=== PATIENT | male | born 1965 | race Asian ===

== ENCOUNTER 2019-03-10 11:40 | Emergency (ER) | payer OTHER ==
[~2019-03-10] VITALS: Ht 162.6 cm; Wt 69.2 kg
[2019-03-10 12:43] LABS: BASOPHILS # (AUTO) 0.1 X10'3 (0-0.2); BASOPHILS % (AUTO) 0.4 % (0-1); EOSINOPHILS # (AUTO) 0.1 X10'3 (0-0.9); EOSINOPHILS % (AUTO) 0.6 % (0-6); HEMATOCRIT 42.7 % (42.0-52.0); HEMOGLOBIN 14.7 g/dl (14.0-17.9); LYMPHOCYTES # (AUTO) 2.7 X10'3 (1.1-4.8); LYMPHOCYTES % (AUTO) 21.8 % (21-51); MEAN CORPUSCULAR HGB CONC 34.4 g/dL (33.0-36.5); MEAN CORPUSCULAR VOLUME 92.9 FL (78-98); MEAN PLATELET VOLUME 7.6 FL (7.4-10.4); MONOCYTES # (AUTO) 1.1 X10'3 (0-0.9); MONOCYTES % (AUTO) 9.3 % (2-12); NEUTROPHILS # (AUTO) 8.3 X10'3 (1.8-7.7); NEUTROPHILS % (AUTO) 67.9 % (42-75); PLATELET COUNT 224 X10'3 (140-440); RED CELL DISTRIBUTION WIDTH 13.4 % (11.5-14.5); WHITE BLOOD COUNT 12.2 X10'3 (4.5-11.0)
[2019-03-10 12:44] LABS: CLARITY,URINE CLEAR (Clear); COLOR,URINE YELLOW (Yellow); GLUCOSE, URINE 250 mg/dl (Neg); KETONES,URINE NEGATIVE (Neg); LEUKOCYTE ESTERASE ,URINE NEGATIVE (Neg); NITRITES, URINE NEGATIVE (Neg); OCCULT BLOOD,URINE LARGE (Neg); PROTEIN,URINE NEGATIVE (Neg); UROBILINOGEN,URINE 0.2 E.U/dL (0.2-1.0)
[2019-03-10 12:48] LABS: UA COLLECTION TYPE CLN CATCH MIDSTREAM
[2019-03-10 12:49] LABS: BACTERIA,URINE NONE SEEN /HPF (Neg); MUCUS STRANDS FEW /LPF (Neg); RBC,URINE 0-2 /HPF (0-2); SQUAMOUS EPITHELIAL CELL,UR FEW /LPF (FEW); WBC,URINE 0-4 /HPF (0-4)
[2019-03-10 12:57] LABS: ALANINE AMINOTRANSFERASE 27 U/L (12-78); ALBUMIN 3.4 G/DL (3.4-5.0); ALBUMIN/GLOBULIN RATIO 0.8 (1.1-1.5); ALKALINE PHOSPHATASE 94 IU/L (46-116); ANION GAP 8 (8-16); ASPARTATE AMINO TRANSFERASE 15 U/L (10-37); BILIRUBIN,TOTAL 0.5 MG/DL (0.1-1.0); BLOOD UREA NITROGEN 16 MG/DL (7-18); BUN/CREATININE RATIO 12.3 (5.4-32.0); CALCIUM 8.7 MG/DL (8.5-10.1); CHLORIDE 106 MMOL/L (99-107); GLUCOSE 116 MG/DL (70-104); POTASSIUM 3.2 MMOL/L (3.5-5.1); SODIUM 142 MMOL/L (135-145); TOTAL CARBON DIOXIDE 28.5 MMOL/L (24-32); TOTAL PROTEIN 7.6 G/DL (6.4-8.2); eGFR 57 ML/MIN
[2019-03-10] MEDS ORDERED: ondansetron/PF 4mg/2ml inj IV ONE (13:25)
[2019-03-10] MEDS ORDERED: normal saline 1000ML IV soln IVB ONE (13:25)
[2019-03-10] MEDS ORDERED: morphine 4 MG/ML inj SYRINge IV ONE (13:25)
[2019-03-10] MEDS ORDERED: iohexol 300mg/ml 100ml inj. ONE (14:47)
[2019-03-10] MEDS ORDERED: morphine 2 MG/ML inj. syringe IV PRN (15:15)
[2019-03-10] MEDS ORDERED: ONDA8TAB13 PO (15:38)
[2019-03-10] MEDS ORDERED: HYDR-3965 PO (15:38)
[2019-03-10] MEDS ORDERED: FLO0.4C PO (15:38)
[2019-03-10] MEDS ORDERED: ketorolac tromethamine 15mg/ml inj. IV ONE (15:40)
[2019-03-10] MEDS ORDERED: tamsulosin 0.4mg capsule PO ONE (15:40)
[2019-03-10 16:48] VITALS: BP 124/85
== END 2019-03-10 16:51 | disposition home or self-care (01) ==
LOC: ER 11:41
DX: N13.2 Hydronephrosis with renal and ureteral calculous obstruction (principal); Z79.899 Other long term (current) drug therapy
CPT/HCPCS: 36415; 74177; 80053; 81001; 85025; 85610; 96374; 96375; 96376; 99284; J1885; J2270; J2405; J7030; Q9967

== ENCOUNTER 2021-05-16 12:06 | Emergency (ER) | payer MEDICAID ==
[~2021-05-16] VITALS: Ht 162.6 cm; Wt 68.2 kg
[~2021-05-16 12:06] MED LIST: ONDA8TAB13 PO
[2021-05-16 12:12] VITALS: BP 132/90
[2021-05-16] MEDS ORDERED: ketorolac tromethamine 15mg/ml inj. IM ONE (13:10)
[2021-05-16] MEDS ORDERED: NAPR-56 PO (13:13)
[2021-05-16] MEDS ORDERED: METH-798 PO (13:13)
== END 2021-05-16 13:31 | disposition home or self-care (01) ==
LOC: ER 12:07
DX: S29.012A Strain of muscle and tendon of back wall of thorax, initial encounter (principal); X58.XXXA Exposure to other specified factors, initial encounter; Y93.89 Activity, other specified; Y92.89 Other specified places as the place of occurrence of the external cause; Y99.8 Other external cause status
CPT/HCPCS: 96372; 99283; J1885